=== PATIENT | female | born 1980 | race Caucasian/White ===

== ENCOUNTER 2018-05-18 08:41 | Emergency (ER) | payer MEDICAID ==
[2018-05-18 09:30] LABS: ADD MAN DIFF? NO
[2018-05-18 09:33] LABS: EOSINOPHILS # 0.1 10^3/ul (0.0-0.5); EOSINOPHILS % 1.8 % (0.0-7.0); HEMOGLOBIN 13.1 g/dl (12.0-16.0); LYMPHOCYTES # 1.7 10^3/ul (0.8-2.9); LYMPHOCYTES % 29.6 % (15.0-51.0); MEAN CORPUSCULAR HEMOGLOBIN 27.9 pg (29.0-33.0); MEAN CORPUSCULAR HGB CONC 33.6 g/dl (32.0-37.0); MEAN PLATELET VOLUME 11.1 fl (7.4-10.4); MONOCYTE # 0.4 10^3/ul (0.3-0.9); MONOCYTES % 6.2 % (0.0-11.0); NEUTROPHIL # 3.5 10^3/ul (1.6-7.5); NEUTROPHILS % 61.9 % (39.0-77.0); PLATELET COUNT 274 10^3/UL (140-415); RED CELL DISTRIBUTION WIDTH 13.4 % (11.5-14.5)
[2018-05-18 09:33] LABS: WHITE BLOOD COUNT 5.7 10^3/ul (4.8-10.8)
[2018-05-18 09:50] LABS: ADD UMIC YES; ALANINE AMINOTRANSFERASE 14 IU/L (13-69); ALBUMIN 4.1 g/dl (3.3-4.9); ALBUMIN/GLOBULIN RATIO 1.24; ALKALINE PHOSPHATASE 65 IU/L (42-121); ANION GAP 15 (5-13); ASPARTATE AMINO TRANSFERASE 15 IU/L (15-46); BILIRUBIN,INDIRECT 0.1 mg/dl (0-1.1); BILIRUBIN,TOTAL 0.1 mg/dl (0.2-1.3); BLOOD UREA NITROGEN 5 mg/dl (7-20); CALCIUM 9.9 mg/dl (8.4-10.2); CARBON DIOXIDE 24 mmol/L (21-31); CHLORIDE 100 mmol/L (97-110); CREATININE 0.33 mg/dl (0.44-1.00); Estimated GFR > 60 mL/min (>60); GLUCOSE 93 mg/dl (70-220); LIPASE 71 U/L (23-300); POTASSIUM 3.7 mmol/L (3.5-5.1); SODIUM 139 mmol/L (135-144); TOTAL PROTEIN 7.4 g/dl (6.1-8.1); UR ASCORBIC ACID NEGATIVE (NEGATIVE); UR BACTERIA FEW /HPF (NONE SEEN); UR BILIRUBIN (Dip) NEGATIVE (NEGATIVE); UR BLOOD (Dip) NEGATIVE (NEGATIVE); UR CLARITY TURBID (CLEAR); UR COLOR YELLOW (YELLOW); UR GLUCOSE (Dip) NEGATIVE (NEGATIVE); UR KETONES (Dip) NEGATIVE (NEGATIVE); UR LEUKOCYTE ESTERASE (Dip) TRACE Leu/ul (NEGATIVE); UR MUCUS FEW /HPF (NONE SEEN); UR NITRITE (Dip) NEGATIVE (NEGATIVE); UR RBC 8 /HPF (0-5); UR SPECIFIC GRAVITY (Dip) 1.015 (1.003-1.030); UR SQUAMOUS EPITHELIAL CELL MODERATE /HPF (FEW); UR TOTAL PROTEIN (Dip) NEGATIVE (NEGATIVE); UR UROBILINOGEN (Dip) NEGATIVE (NEGATIVE); UR WBC 5 /HPF (0-5)
== END 2018-05-18 10:56 | disposition home or self-care (01) ==
LOC: FTE 08:41
DX: O02.1 Missed abortion (principal); O23.42 Unspecified infection of urinary tract in pregnancy, second trimester
CPT/HCPCS: 36415; 76805; 80053; 81001; 83690; 85025; 86900; 86901; 99284-25

== ENCOUNTER 2018-07-26 17:21 | Emergency (ER) | payer SELFPAY, MEDICAID | END 2018-07-26 19:08 | disposition left against medical advice (07) | LOC: FTE 17:21 | DX: Z53.21 Procedure and treatment not carried out due to patient leaving prior to being seen by health care provider (principal) ==